=== PATIENT | female | born 1985 | race Hispanic/Latino ===

== ENCOUNTER 2019-07-19 14:12 | Emergency (ER) | payer MEDICAID ==
[~2019-07-19 14:12] MED LIST: IBUP-2077 PO
== END 2019-07-19 15:54 | disposition home or self-care (01) ==
LOC: EDH 14:12
DX: J11.1 Influenza due to unidentified influenza virus with other respiratory manifestations (principal)

== ENCOUNTER 2024-11-01 20:06 | Emergency (ER) | payer BC, MEDICAID ==
[~2024-11-01] VITALS: Ht 167.6 cm; Wt 92.1 kg
--- NOTE | 2024-11-01 20:26 | ERN ---
ED Note History of Present Illness Stated Complaint: ABD PAIN, CHILLS, HEADACHE Time Seen by MD: 20:11 Time Seen by Midlevel: 20:11 Dictation: The patient is a 38-year-old female with no past medical history who presents to the emergency department with three days of epigastric abdominal pain associated with nausea and headache. She reports only one episode of vomiting. Denies any diarrhea or constipation. Allergies: Coded Allergies: No Known Allergies (Verified Allergy, 07/30/13) Home Meds Active Scripts Ibuprofen (Ibuprofen 800 mg Tab) 800 Mg Tab, 800 MG PO Q6H PRN for PAIN, #90 TAB 0 Refills Prov:CHERYL ACEVEDO MD 06/16/14 Past Medical History RN Note Reviewed/Agreed w/PFSH: Yes Review of System Dictation Constitutional: Negative for fever, and weight loss positive for chills Eyes: Negative for injury, pain,redness, and discharge ENT: Negative for injury,pain or swelling Cardiovascular: Negative for chest pain, palpitations, and edema Respiratory: Negative for shortness of breath, cough, and wheezing, Abdomen/GI: Negative for , vomiting, diarrhea, and constipation positive for abdominal pain, nausea Back: Negative for injury and pain : Negative for injury, bleeding and discharge MS/Extremity: Negative for injury and deformity Skin: Negative for rash, and discoloration Neuro: Negative for headache, weakness, numbness, tingling, and seizure Psych: Negative for suicide ideation, homicidal ideation, and hallucinations Initial Vital Sign VS Vital Signs Date Time Temp Pulse Resp B/P (MAP) Pulse Ox O2 Delivery O2 Flow Rate FiO2 11/01/24 20:31 98.2 93 20 129/79 100 Room Air Physical Exam Dictation Vital Signs reviewed General Appearance: Alert, oriented x 3, no acute distress, well developed, nourished. Head and Face: non-traumatic. Eyes: PERRL, pink conjunctivas, eyelid no trauma, anterior chamber with arcus senilis. Ears: Pinnas intact and no signs of trauma or erythema ear canals clear and no discharge TM no erythema Nose: No discharge, no bleeding. Oropharynx: Mouth normal, tongue pink. pharynx clear,no erythema, tonsils no exudates, no abscesses noted, mucous membrane moist Neck: Supple, non-tender, no thyromegaly, no masses, no JVD, no bruits Breast:Deferred Chest:No tenderness, no crepitus, no paradoxical movement, no retractions Lungs:Clear, well-ventilated, symmetric, no rales, no wheezing, no rhonchi, no stridor, good breath sounds bilaterally Heart: Regular rate, regular rhythm, no murmur, no gallops Vascular: no peripheral edema, Abdomen: Soft, positive bowel sounds, nondistended, no guarding, nontender, no rebound, no masses no hepatomegaly, no splenomegaly, no Mir's sign, no hernias. Rectal: Deferred Genital: Deferred Neurological: Normal speech, motor function intact, sensory function intact Musculoskeletal: Neck nontender, full range of motion, back nontender, full range of motion, Extremities: nontender, full range of motion Skin: Color pink, dry, no turgor, no rash, no lacerations, no abrasions, no contusions. Lymphatic: Deferred Results (Laboratory/Radiology) Laboratory/Radiology Laboratory Tests Test 11/01/24 20:58 11/01/24 21:40 White Blood Count 6.0 K/uL (4.8-10.8) Red Blood Count 4.65 MIL/uL (4.00-5.50) Hemoglobin 10.2 g/dL (12.0-16.0) L Hematocrit 33.2 % (36-48) L Mean Corpuscular Volume 71.4 fL (79-99) L Mean Corpuscular Hemoglobin 21.9 pg (27.0-33.0) L Mean Corpuscular Hemoglobin Concent 30.7 g/dL (32.0-36.0) L Red Cell Distribution Width 17.0 % (11.0-15.5) H Platelet Count 259 K/uL (130-400) Mean Platelet Volume 10.3 fL (7.5-10.5) Immature Granulocyte % (Auto) 0.5 % (0-1) Neutrophils (%) (Auto) 77.8 % (40.0-77.0) H Lymphocytes (%) (Auto) 11.3 % (21.0-51.0) L Monocytes (%) (Auto) 9.8 % (3.0-13.0) Eosinophils (%) (Auto) 0.3 % (0.0-8.0) Basophils (%) (Auto) 0.3 % (0.0-5.0) Neutrophils # (Auto) 4.7 K/uL (1.8-7.7) Lymphocytes # (Auto) 0.7 K/uL (1.0-4.8) L Monocytes # (Auto) 0.6 K/uL (0.1-1.0) Eosinophils # (Auto) 0.02 K/uL (0.00-0.70) Basophils # (Auto) 0.02 K/uL (0.00-0.20) Absolute Immature Granulocyte (auto 0.03 K/uL (0-1) Nucleated Red Blood Cells 0.0 % (0.0-0.19) Red Blood Cell Morphology See comments Sodium Level 136 mmol/L (136-145) Potassium Level 3.7 mmol/L (3.5-5.1) Chloride Level 104 mmol/L (101-111) Carbon Dioxide Level 26 mmol/L (21-32) Blood Urea Nitrogen 11 mg/dL (7-18) Creatinine 0.8 mg/dL (0.5-1.0) Glomerular Filtration Rate Calc 97 mL/min (>90) Random Glucose 92 mg/dL (70-105) Total Calcium 8.4 mg/dL (8.5-10.1) L Total Bilirubin 0.2 mg/dL (0.2-1.0) Direct Bilirubin 0.1 mg/dL (0.0-0.3) Aspartate Amino Transf (AST/SGOT) 25 U/L (10-37) Alanine Aminotransferase (ALT/SGPT) 41 U/L (12-78) Alkaline Phosphatase 106 U/L (50-136) Total Creatine Kinase 68 U/L (21-232) Troponin I High Sensitivity < 4 ng/L (4-50) L Total Protein 7.0 g/dL (6.0-8.3) Albumin 3.1 g/dL (3.5-5.0) L Lipase 25 U/L (16-77) Urine Color YELLOW (YELLOW) Urine Appearance CLEAR (CLEAR) Urine pH 6.0 (5.0-8.0) Urine Specific [place] 1.022 (1.001-1.031) Urine Protein 10 mg/dL (NEGATIVE) H Urine Glucose (UA) NEGATIVE mg/dL (NEGATIVE) Urine Ketones 20 mg/dL (NEGATIVE) H Urine Occult Blood MODERATE (NEGATIVE) H Urine Nitrate NEGATIVE (NEGATIVE) Urine Bilirubin NEGATIVE mg/dL (NEGATIVE) Urine Urobilinogen 2.0 mg/dL (0.2-1.0) H Urine Leukocyte Esterase NEGATIVE [place]/uL Urine RBC 6-10 /HPF (0-1) H Urine WBC 2-5 /HPF (0-1) H Urine Squamous Epithelial Cells RARE /HPF (0-2) Urine Bacteria None /HPF (None Seen) Urine HCG, Qualitative NEGATIVE (NEGATIVE) Labs Reviewed?: Yes EKG: (+) rhythm (Sinus rhythm) EKG Comment: Date:11/01/2024 Time:2031 Ventricular rate:89 [place] interval:145 QRS duration:87 QT/QTc:346 EKG interpretation: Sinus rhythm Reviewed by ED Attending no STEMI ED Course ED Course Orders Procedure Category Date Status Time Cbc With Differential LAB 11/01/24 Complete 20:19 Troponin I High LAB 11/01/24 Complete Sensitivity 20:19 ,Urine Test LAB 11/01/24 Complete 20:19 Urinalysis Profile LAB 11/01/24 Complete 20:19 12 Lead Ekg Tracing- EKG 11/01/24 Complete Technical 20:19 0.9%Nacl 1000ml (Ns PHA 11/01/24 Complete 1000ml) 20:30 Ondansetron 4mg Inj PHA 11/01/24 Complete (Zofran 4mg Inj) 20:30 Pantoprazole 40mg Inj PHA 11/01/24 Complete (Protonix 40mg Inj 20:30 Creatine Kinase, Total LAB 11/01/24 Complete 20:19 Lipase LAB 11/01/24 Complete 20:19 Basic Metabolic Panel LAB 11/01/24 Complete 20:19 Hepatic Function Panel LAB 11/01/24 Complete 20:19 Current Medications Medications (Trade) Dose Ordered Sig/Kavitha Route PRN Reason Start Time Stop Time Status Last Admin Dose Admin Ondansetron HCl (zoFRAN 4MG INJ) 4 mg ONCE ONCE IVP 11/01/24 20:30 11/01/24 20:31 DC 11/01/24 21:35 Pantoprazole Sodium (PROTonix 40MG INJ) 40 mg ONCE ONCE IVP 11/01/24 20:30 11/01/24 20:31 DC 11/01/24 21:35 Sodium Chloride 1,000 ml @ 0 mls/hr ONCE ONCE IV 11/01/24 20:30 11/01/24 20:31 DC 11/01/24 21:35 Vital Signs Date Time Temp Pulse Resp B/P (MAP) Pulse Ox O2 Delivery O2 Flow Rate FiO2 11/01/24 20:31 98.2 93 20 129/79 100 Room Air Medical Decision Making MDM The patient is a 38-year-old female with no past medical history who presents to the emergency department with three days of epigastric abdominal pain associated with nausea and headache. She reports only one episode of vomiting. Denies any diarrhea or constipation. Denies any fevers but reports chills. CBC showed no leukocytosis, microcytic anemia, chemistry showed no electrolyte imbalance, negative troponin, negative lipase, normal renal function, negative liver enzymes. Urinalysis unremarkable On physical exam patient is neuro logically intact. Ambulatory. Nontender abdomen to palpation. Patient with stable vital signs. Nontoxic appearance. Differential diagnosis: Gastritis, electrolyte imbalance, cholelithiasis, gastroenteritis Need for hospitalization: Patient does not meet criteria for hospitalization. There are no social concerns with this patient. DX & DISP Disposition: Discharge Departure Impression: Primary Impression: Gastroenteritis Additional Impression: Abdominal pain Condition: Stable Scripts Pantoprazole Sodium (Pantoprazole Sodium) 20 Mg Tablet.dr 1 TAB PO DAILY for 30 Days, #30 TAB 0 Refills Prov: ANANYA STARK 11/01/24 Ondansetron (Ondansetron Odt) 4 Mg Tab.rapdis 4 MG PO Q6HPRN PRN for nausea, #16 TAB 0 Refills Prov: ANANYA STARK 11/01/24 Additional Instructions: Please follow up with your primary doctor in 1-2 days. If symptoms worsen please return to ER. FOLLOW-UP WITH PRIMARY CARE PROVIDER IN 1 TO 2 DAYS. TAKE MEDICATIONS DIRECTED HERE IN THE EMERGENCY ROOM. OKAY TO CONTINUE HOME MEDICATIONS UNLESS OTHERWISE DISCUSSED DURING YOUR VISIT IN THE EMERGENCY ROOM TODAY. RETURN TO YOUR NEAREST EMERGENCY ROOM IF SYMPTOMS WORSEN OR IF THERE IS NO IMPROVEMENT. CALL 911 IF YOU NEED IMMEDIATE ASSISTANCE. TAKE TYLENOL OR MOTRIN [id number] NEEDED AND IF NO CONTRAINDICATIONS ARE PRESENT. INCREASE ORAL HYDRATION. A WOUND CULTURE OR URINE CULTURE WAS ORDERED HERE IN THE EMERGENCY ROOM DEPARTMENT PLEASE FOLLOW-UP WITH PRIMARY CARE PROVIDER AND ADVISE THEM TO GET REPEAT PORTS FROM OUR FACILITY. IF YOU HAD ANY YUMIKO WRAP/SPLINTS THAT WERE APPLIED HERE, PLEASE DO NOT REMOVE THEM UNTIL YOU SEE YOUR PRIMARY CARE OR SPECIALTY. Referrals: STEFFANY JONES MD (PCP) Time of Disposition: 22:26 I have reviewed the case, and I agree with, Diagnosis and Plan ANANYA STARK November 01, 2024 20:26
--- NOTE | 2024-11-01 20:34 | EKG ---
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
[2024-11-01 21:15] LABS: BASOPHILS # (AUTO) 0.02 K/uL (0.00-0.20); BASOPHILS % (AUTO) 0.3 % (0.0-5.0); EOSINOPHILS # (AUTO) 0.02 K/uL (0.00-0.70); EOSINOPHILS % (AUTO) 0.3 % (0.0-8.0); HEMATOCRIT 33.2 % (36-48); IMMATURE GRANULOCYTE ABSOLUTE 0.03 K/uL (0-1); LYMPHOCYTES # (AUTO) 0.7 K/uL (1.0-4.8); LYMPHOCYTES % (AUTO) 11.3 % (21.0-51.0); MEAN CORPUSCULAR HEMOGLOBIN 21.9 pg (27.0-33.0); MEAN CORPUSCULAR HGB CONC 30.7 g/dL (32.0-36.0); MEAN CORPUSCULAR VOLUME 71.4 fL (79-99); MONOCYTES # (AUTO) 0.6 K/uL (0.1-1.0); MONOCYTES % (AUTO) 9.8 % (3.0-13.0); NEUTROPHILS # (AUTO) 4.7 K/uL (1.8-7.7); NEUTROPHILS % (AUTO) 77.8 % (40.0-77.0); PLATELET COUNT (AUTO) 259 K/uL (130-400); RED BLOOD CELL COUNT(AUTO) 4.65 MIL/uL (4.00-5.50)
[2024-11-01 21:24] LABS: CREATININE 0.8 mg/dL (0.5-1.0); POTASSIUM 3.7 mmol/L (3.5-5.1)
[2024-11-01 21:28] LABS: ALBUMIN 3.1 g/dL (3.5-5.0); BILIRUBIN,DIRECT 0.1 mg/dL (0.0-0.3); BILIRUBIN,TOTAL 0.2 mg/dL (0.2-1.0)
[2024-11-01] MEDS: ondanSETRON 4MG INJ IVP ONE (21:35)
[2024-11-01] MEDS: 0.9%NACL 1000ML 1,000 ML IV ONE (21:35)
[2024-11-01] MEDS: PANTOPrazole 40 MG/VIAL IVP ONE (21:35)
[2024-11-01 21:52] LABS: APPEARANCE,URINE CLEAR (CLEAR); BILIRUBIN,URINE NEGATIVE (NEGATIVE); COLOR,URINE YELLOW (YELLOW); GLUCOSE, URINE (UA) NEGATIVE (NEGATIVE); KETONES,URINE 20 mg/dL (NEGATIVE); LEUKOCYTE ESTERASE ,URINE NEGATIVE Leu/uL (NEGATIVE); NITRATE,URINE NEGATIVE (NEGATIVE); OCCULT BLOOD,URINE MODERATE (NEGATIVE); PROTEIN,URINE 10 mg/dL (NEGATIVE)
[2024-11-01 21:53] LABS: ADD UA MICROSCOPIC YES
[2024-11-01 21:57] LABS: MUCUS,URINE RARE LPF (None Seen); SQUAMOUS EPITHELIAL CELL,UR RARE /HPF (0-2)
[2024-11-01 21:58] LABS: HCG,QUALITATIVE URINE NEGATIVE (NEGATIVE)
[2024-11-01] MEDS ORDERED: ONDA-243 PO (22:35)
[2024-11-01] MEDS ORDERED: PANT20TA18 PO (22:35)
[2024-11-01 22:51] VITALS: BP 118/71; PULSE 86; RESP 17; TEMP 98.2; O2SAT 100
== END 2024-11-01 23:05 | disposition home or self-care (01) ==
LOC: EDH 20:06
DX: K52.9 Noninfective gastroenteritis and colitis, unspecified (principal); R10.13 Epigastric pain
CPT/HCPCS: 99284; 96374; 96361; 96375; 82550; 80076; 84484; 80048; 83690; 85025; 81001; 81025; 36415; 93005; J7030; J2405; J2470